=== PATIENT | female | born 1955 | race Caucasian/White ===

== ENCOUNTER 2022-10-16 11:06 | Outpatient (OUT) | payer BC, SELFPAY ==
--- NOTE | 2022-10-16 11:08 | FL_ITS ---
[address] [address] Patient Name: CALISTA REILLY MRN: [id number] date: 1955 Sex: F Assigned Patient Location: [facility] Current Patient Location: [facility] Accession/Order Number: [id number] Exam Date: 10/16/2022 11:40 Report Date: 10/16/2022 12:24 At the request of: NON-STAFF PHYSICIAN Procedure: FL hip inj LT EXAMINATION: FL hip inj LT HISTORY: Acute left hip pain M25.552 COMPARISON: No relevant comparison available. TECHNIQUE: A joint injection was performed in the usual sterile manner after obtaining informed consent. Standard level fluoroscopic mode of operation utilized. FINDINGS: JOINT: Left hip. NEEDLE: 22 gauge, 6.5 spinal needle. MEDICATION: 5cc buffered 1% lidocaine for subcutaneous anesthesia Mixture of Kenalog 40 mg, 0.5% Bupivacaine 2 mL and Omnipaque 300 3 mL was injected into the joint space. TECHNIQUE: Anterior approach with prior localization of the femoral artery. A single stick was successful in gaining access to the joint space. CLINICAL: Near complete resolution of hip pain following the injection. COMPLICATIONS: None. OTHER: Negative. IMPRESSION: Technically successful left hip therapeutic arthrogram Electronically authenticated by: RANDY RODRIGUEZ Date: 10/16/2022 12:24
[2022-10-16] MEDS: LIDOCAINE HCL 10 ML, SODIUM BICARBONATE 1 MEQ INJ (11:25)
[2022-10-16] MEDS: TRIAMCINOLONE ACETONIDE 40 MG/ML VIAL INJ (11:25)
[2022-10-16] MEDS: BUPIVACAINE HCL 0.5% PF 50 MG/10 ML VIAL 2 ML INJ (11:25)
[2022-10-16 15:12] VITALS: BMI 37.8
--- NOTE | 2022-10-16 15:21 | PC.NURSE ---
1135 Bandaid placed over procedure site. Pt ambulated in salvador 200 feet and then pain reassessed.
== END 2022-10-16 12:00 | disposition home or self-care (01) ==
LOC: RAD 11:07
PROVIDERS: Radiology Diagnostic Radiology; PCP Internal Medicine
DX: M25.552 Pain in left hip (principal)
CPT/HCPCS: 20610; 77002; Q9967

== ENCOUNTER 2022-10-19 09:58 | Day surgery (SDC) | payer BC, SELFPAY ==
--- NOTE | 2022-10-19 10:08 | FL_ITS ---
The [address] [address] Patient Name: CALISTA REILLY MRN: [id number] date: 1955 Sex: F Assigned Patient Location: [place] Current Patient Location: [place] Accession/Order Number: [id number] Exam Date: 10/19/2022 10:20 Report Date: 10/19/2022 11:45 At the request of: NON-STAFF PHYSICIAN Procedure: FL hip inj RT EXAMINATION: FL hip inj RT HISTORY: Right Hip Pain COMPARISON: No relevant comparison available. FLUOROSCOPY TIME: Fluoro time measures 1.6 minutes and 4 images were obtained. TECHNIQUE: A joint injection was performed in the usual sterile manner after obtaining informed consent. Standard level fluoroscopic mode of operation utilized. FINDINGS: JOINT: Right hip. NEEDLE: 22 gauge, 6.5 spinal needle. MEDICATION: 6cc buffered 1% lidocaine for subcutaneous anesthesia Mixture of Kenalog 40 mg, 0.5% Bupivacaine 2 mL and Omnipaque 300 3mL was injected into the joint space. TECHNIQUE: Anterior approach with prior localization of the femoral artery. A single stick was successful in gaining access to the joint space. CLINICAL: 8 out of 10 pain preprocedure. 2 out of 10 pain following the injection COMPLICATIONS: None. OTHER: Negative. IMPRESSION: Technically successful right hip arthrogram with significant reduction in the patient's hip pain Electronically authenticated by: RANDY RODRIGUEZ Date: 10/19/2022 11:45
[2022-10-19] MEDS: LIDOCAINE HCL 10 ML, SODIUM BICARBONATE 1 MEQ INJ (10:58)
[2022-10-19] MEDS: TRIAMCINOLONE ACETONIDE 40 MG/ML VIAL INJ (10:58)
[2022-10-19] MEDS: BUPIVACAINE HCL 0.5% PF 50 MG/10 ML VIAL 2 ML INJ (10:58)
== END 2022-10-19 12:57 | disposition home or self-care (01) ==
LOC: FL 09:58
PROVIDERS: Radiology Diagnostic Radiology; PCP Internal Medicine
DX: M16.11 Unilateral primary osteoarthritis, right hip (principal)
CPT/HCPCS: 20610; 77002; Q9967

== ENCOUNTER 2022-11-16 13:04 | Outpatient (OUT) | payer BC, SELFPAY ==
--- NOTE | 2022-11-16 | CONS_ITS ---
CONSULTATION DATE: ??11/16/2022 ADDENDUM:? At that time, it was recommended she consider a left sided transforaminal epidural steroid injection.? We will change that to a caudal epidural steroid injection under fluoroscopic guidance, with advancement of a catheter, to the L5-S1 level, as the patient has described neurogenic type pain as well as clumping of the cauda equina, suggesting arachnoiditis.? VARSHAD
--- NOTE | 2022-11-16 13:36 | PM.CN ---
Consult Note: HPI Data of Consult Patient: known to practice within the last 3 years Requesting Physician: Ann Gomez NP Primary Care Provider: JUAN JOSE BECERRA Consult Narrative cc:: CC: Ann Gomez NP Review of Systems ROS Status of ROS 10 or more systems reviewed and unremarkable except as noted in history and below [facility] Medical History Surgical History Meds Home Medications and Allergies Home Medications Medication Instructions Recorded Confirmed Type Cranberry 100 mg PO DAILY 10/12/22 10/19/22 History Duloxetine 60 mg PO DAILY 10/12/22 10/19/22 History Gabapentin 600 mg PO TID 10/12/22 10/19/22 History Osteobiflex 1 tab PO 10/12/22 History carbemazepine 200 mg PO BID 10/12/22 10/19/22 History cholecalciferol (vitamin D3) 100 100 mcg PO DAILY 10/12/22 10/19/22 History mcg (4,000 unit) tablet melatonin 10 mg capsule 10 mg PO DAILY 10/12/22 10/19/22 History multivitamin 1 tab PO DAILY 10/12/22 10/19/22 History multivitamin with minerals 1 tab PO DAILY 10/12/22 10/19/22 History (Hair,Skin and Nails tablet) nortriptyline 75 mg capsule PO DAILY 10/12/22 History rosuvastatin 40 mg tablet (Crestor) 40 mg PO DAILY 10/12/22 10/19/22 History nitrofurantoin 100 mg PO BID 10/16/22 10/19/22 History monohydrate/macrocrystals 100 mg capsule (Macrobid) Allergies Allergy/AdvReac Type Severity Reaction Status Date / Time Penicillins Allergy Severe Anaphylaxis Verified 10/19/22 12:40 estradiol [From Climara] Allergy Hives Verified 10/19/22 12:40 morphine AdvReac GI upset Verified 10/19/22 12:40 Bactrim Allergy Severe Anaphylaxis Uncoded 10/19/22 12:40 Roxycodone Allergy Severe anaphylaxis Uncoded 10/19/22 12:40 Lipitor Allergy Intermediate hives Uncoded 10/19/22 12:40 Avelox Allergy hives Uncoded 10/19/22 12:40 Lovastatin AdvReac Mild Abdominal Uncoded 10/19/22 12:40 Cramping Exam Constitutional Common normals: no apparent distress, oriented x3, healthy appearing, alert and well nourished General appearance: cooperative Nutritional appearance: obese HENMT Common normals: normocephalic Head and scalp: normocephalic Mouth: oral and palatal mucosa normal Eye Common normals: PERRL Pupil: PERRL Neck & C-Spine Common normals: full ROM General: normal visual inspection Cervical spine: cervical ROM normal Chest Common normals: inspection of chest normal Respiratory Common normals: normal respiratory effort, no retractions and no use of accessory muscles Other: trial bladder stimulator over lower back Back & Pelvis Thoracic spine/upper back: ROM limited and pain with ROM Lumbar spine/lower back: ROM limited and pain with ROM Sacroiliac joints: SI joint(s) abnormal SI joint details: tender to palpation Other: modified physical exam as patient is limited with her bladder stimulator trial currently placed, experiencing positive bilateral facet bearing pain. Extremity Common normals: normal to inspection Neuro Common normals: oriented x3, CN's II-XII intact bilaterally, moves all extremities, no focal motor deficits, no sensory deficits noted, deep tendon reflexes 2+ bilaterally and gait normal Sensorium/orientation: alert Motor exam: strength 5/5 throughout and no movement abnormalities noted Psych Common normals: mental status grossly normal, thought process normal, cooperative, affect normal, speech normal and activity/motor behavior normal Speech: normal speech Thought process: normal thought process Assessment and Plan Assessment and Plan (1) Spondylosis of lumbosacral spine with radiculopathy: (2) Lumbar stenosis with neurogenic claudication: Plan Patient presents for follow up on chronic low back and bilateral hip pain. Reviewed MRI findings on Lumbar Spine patient has mild to moderate central canal stenosis and neural foraminal narrowing at L2-3, moderate to severe bilateral neural foraminal narrowing at L5/S1, mild clumping of the cauda equina. Patient does present with left sided neurogenic claudicaiton/radiculopathy down to lateral aspect of left foot. Patient has done PT in the past, performs structured home exercise program currently. Patient has been taking gabapentin 600mg once daily (prescribed by another physician as TID) and was instructed to increase gabapentin to 600mg BID for the next week and call the office to see if this has helped with any of her chronic pains. Patient was prescribed [place] 5/325 after bladder trial implant surgery, which helped with her back pain. UDS collected today, no narcotics ordered at this visit. CHAZ 66%, completely disabled. Plan for left sided TFESI due to severe pain and neurogenic claudication F/u in one week via phone with nurse to discuss gabapentin titration F/u in office after procedure
== END 2022-11-16 13:05 | disposition home or self-care (01) ==
LOC: PM 13:04
PROVIDERS: PCP Internal Medicine; Visit Provider Nurse Practitioner
DX: M47.817 Spondylosis without myelopathy or radiculopathy, lumbosacral region (principal); M48.062 Spinal stenosis, lumbar region with neurogenic claudication
CPT/HCPCS: G0463

== ENCOUNTER 2022-11-27 12:19 | Outpatient (OUT) | payer BC, SELFPAY ==
[2022-11-27 12:43] LABS: Bilirubin Urine NEGATIVE (NEGATIVE); Blood Urine NEGATIVE (NEGATIVE); Clarity Urine CLEAR (CLEAR); Color Urine YELLOW (YELLOW); Glucose Urine UA NEGATIVE (NEGATIVE); Ketones Urine NEGATIVE (NEGATIVE); Leukocyte Esterase Urine NEGATIVE (NEGATIVE); Nitrite Urine NEGATIVE (NEGATIVE); Protein Urine NEGATIVE (NEG/TRACE); Urobilinogen Urine 0.2 EU/dL (0.2-1.0)
== END 2022-11-27 12:20 | disposition home or self-care (01) ==
LOC: LAB 12:21
PROVIDERS: PCP Internal Medicine
DX: R39.9 Unspecified symptoms and signs involving the genitourinary system (principal)
CPT/HCPCS: 81003; 87086; 87150; 87186

== ENCOUNTER 2023-02-08 10:48 | Outpatient (OUT) | payer MEDICARE, BC, SELFPAY ==
--- NOTE | 2023-02-08 10:50 | US_ITS ---
[address] [address] Patient Name: CALISTA REILLY MRN: [id number] date: 1955 Sex: F Assigned Patient Location: Current Patient Location: [place] Accession/Order Number: [id number] Exam Date: 02/08/2023 10:51 Report Date: 02/08/2023 11:51 At the request of: MIKEY RIVAS Procedure: US renal BI EXAMINATION: US renal BI HISTORY: Bladder Spasm N32.89, Painful Urination R30.9 COMPARISON: No relevant comparison available. TECHNIQUE: Ultrasound examination was performed of the bladder. FINDINGS: Right Kidney: Normal in size, contour and echotexture. No solid mass, hydronephrosis or obstructing nephrolithiasis. The cortex measures 1.3 cm. Height: 4.8 cm Length: 10.5 cm Width: 5.3 cm Left Kidney: Normal in size, contour and echotexture. No solid mass, hydronephrosis or obstructing nephrolithiasis. The cortex measures 1.4 cm Height: 5.3 cm Length: 10.6 cm Width: 5.3 cm The urinary bladder is normal in appearance. The wall measures 2 mm. Prevoid volume 100 cc. Post void volume 2 cc Ureteral jets: Visualized bilaterally US/US renal BI IMPRESSION: No abnormality observed Electronically authenticated by: RANDY RODRIGUEZ Date: 02/08/2023 11:51
== END 2023-02-08 10:49 | disposition home or self-care (01) ==
LOC: US 10:48
PROVIDERS: PCP Internal Medicine
DX: E30.9 Disorder of puberty, unspecified (principal); N32.89 Other specified disorders of bladder
CPT/HCPCS: 76775

== ENCOUNTER 2023-07-23 13:14 | Outpatient (OUT) | payer MEDICARE, SELFPAY ==
--- NOTE | 2023-07-23 | CONS_ITS ---
CONSULTATION DATE: 07/23/2023 TO: Dr. Greco CHIEF COMPLAINT: Includes ?entire spine pain? as well as hip pain. HISTORY: She reports the pain a being 8/10, deep aching in character with a sharp component, exacerbated with any kind of movement. She feels most comfortable in the semi-recumbent position. Denies any change in bowel and bladder habits or new sensorimotor changes in the lower extremities. CURRENT MEDICATION: Includes Tylenol 1000 mg b.i.d., gabapentin 600 mg t.i.d., Flexeril 10 mg up to t.i.d. EXAMINATION: Notable for patient having no clinical radiculopathy or myelopathy involving the lower extremities. Patient did have point tenderness in multiple major muscle groups. This includes the deltoid, the triceps, the biceps, trapezius, latissimus dorsi, quadriceps, hamstrings and gastrocnemius muscles bilaterally. Nothing to suggest SI joint dysfunction or facet loaded pain clinically. Patient had a moderate amount of myofascial spasm of the lumbar paravertebral muscles bilaterally. IMPRESSION: Our impression is patient with chronic pain secondary to fibromyalgia with flare, myofascial spasm of the lumbar paravertebral muscles. RECOMMENDATIONS: I recommend a urine toxicology screen on today?s visit. Will ask patient to discontinue Flexeril. Will trial her on baclofen 10 mg pills, half a pill up to one pill t.i.d as tolerated. I have increased the gabapentin to 600 mg pills, one in the morning, one in the afternoon and two at bedtime. I have asked the patient to return to the office in one week?s time to monitor response to change in medication. As part of providing excellent, safe, comprehensive care, the following was completed at our patient's visit: 1. A medication reconciliation and review to ensure accurate knowledge of current/active medications, including asking our patients to inform us about any [id number] medications or herbal remedies/nutritional supplements/alternative remedies. 2. A review to specifically ensure our patients have had annual screening for: elevated body mass index (BMI, see intake chart for exact total), tobacco use, screening for depression, and screening for unhealthy alcohol use. When screening is concerning, patients are provided with education and the specific recommendation to discuss the concerning health issue and treatment options with their primary care provider. LUI
== END 2023-07-23 13:15 | disposition home or self-care (01) ==
PROVIDERS: PCP Internal Medicine; Visit Provider Anesthesiology Pain Medicine
DX: G89.4 Chronic pain syndrome (principal); M79.7 Fibromyalgia; M62.838 Other muscle spasm
CPT/HCPCS: G0463

== ENCOUNTER 2023-07-31 14:25 | Outpatient (OUT) | payer MEDICARE, SELFPAY ==
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
== END 2023-07-31 14:26 | disposition home or self-care (01) ==
LOC: PM 14:25
PROVIDERS: PCP Internal Medicine; Visit Provider Nurse Practitioner
DX: M79.7 Fibromyalgia (principal); M48.062 Spinal stenosis, lumbar region with neurogenic claudication; M47.816 Spondylosis without myelopathy or radiculopathy, lumbar region; G47.00 Insomnia, unspecified; G89.4 Chronic pain syndrome
CPT/HCPCS: G0463